=== PATIENT | male | born 1960 ===

== ENCOUNTER 2024-06-29 08:00 | Outpatient (CLI) | payer OTHER ==
[~2024-06-29] VITALS: Ht 162.6 cm; Wt 77.1 kg
[2024-06-29] MEDS ORDERED: ROSUVASTATIN CA40 MG PO (14:48)
[2024-06-29] MEDS ORDERED: LOSARTAN-HCTZ1 EACH PO (14:49)
[2024-06-29] MEDS ORDERED: TOLTERODINE TART4 MG PO (14:49)
[2024-06-29 14:50] VITALS: BP 170/100
== END 2024-06-29 08:01 | disposition home or self-care (01) ==
LOC: EKG 08:00 → SURH 07-06 10:15 → EDSTATUS 07-06 10:45
PROVIDERS: ATTEND Surgery
DX: C19 Malignant neoplasm of rectosigmoid junction (principal); R59.0 Localized enlarged lymph nodes; K92.1 Melena

== ENCOUNTER 2024-07-01 09:47 | Outpatient (CLI) | payer OTHER ==
[~2024-07-01 09:47] MED LIST: LOSARTAN-HCTZ1 EACH PO; ROSUVASTATIN CA40 MG PO; TOLTERODINE TART4 MG PO
== END 2024-07-01 09:53 | disposition home or self-care (01) ==
LOC: TOM 09:47
PROVIDERS: ATTEND Surgery
DX: C19 Malignant neoplasm of rectosigmoid junction (principal); R59.0 Localized enlarged lymph nodes; K92.1 Melena
CPT/HCPCS: 71260; 74177; Q9965